=== PATIENT | female | born 1990 | race Caucasian/White ===

== ENCOUNTER 2020-07-10 07:55 | Outpatient (CLI) | payer SELFPAY ==
--- NOTE | 2020-07-10 08:45 | MR_ITS ---
WS: [id number] MRI BRAIN WITHOUT CONTRAST HISTORY: G43.909 Migraine, unspecified, not intractable, COMPARISON: None available. TECHNIQUE: Diffusion imaging, multiplanar T1, T2 and FLAIR imaging obtained. No evidence for acute infarct or hemorrhage. Dawson-white matter differentiation is normal. No remote or acute infarcts are volume loss. Ventricles and extra-axial spaces are normal. No inferior displacement of cerebellar tonsils. The sella turcica and pituitary gland are unremarkabl e. Posterior fossa is also unremarkable. Dural venous sinuses and [place] demonstrate no abnormality on this unenhanced studies. Paranasal sinuses: Variable signal intensity throughout the RIGHT maxillary sinus. Mild mucoperiostea l thickening in the LEFT maxillary, RIGHT sphenoid and ethmoid air cells. Slightly greater involvemen t of the RIGHT ethmoid air cells. Mastoid air cells: Normal. Calvarium and scalp: Intact. MR/MR head wo con* [id number] IMPRESSION: 1. No acute infarct or signal abnormalities within the brain. 2. Sinusitis, greatest involving the RIGHT maxillary and RIGHT ethmoid air carline ls with lesser involvement of the RIGHT sphenoid and LEFT maxillary sinus.
== END 2020-07-10 07:56 | disposition home or self-care (01) ==
LOC: RADSHAW 07:58
PROVIDERS: PCP Nurse Practitioner Family; Visit Provider Nurse Practitioner Family
DX: G43.909 Migraine, unspecified, not intractable, without status migrainosus (principal); J32.0 Chronic maxillary sinusitis
CPT/HCPCS: 70551; 80053; 80061; 81003; 82306; 83036; 84439; 84443; 84481; 85025

== ENCOUNTER 2020-07-12 21:41 | Emergency (ER) | payer SELFPAY ==
[2020-07-12 21:54] VITALS: BP 122/80; PULSE 63; RESP 17; TEMP 36.9; O2SAT 100; BMI 29.7
--- NOTE | 2020-07-12 22:14 | W.ED.CHESTPA ---
HPI - Chest Pain General: Chief Complaint: Chest Pain Stated Complaint: CP Time Seen by Provider: 07/12/20 22:07 History of Present Illness: HPI narrative: Patient is a 29-year-old female comes to the ED with chest pain. Patient says she has been on and off again chest pain for the past 2 weeks. She notices that sometimes chest pain gets worse after she eats and when she lays down. Otherwise onset of chest pain occurs anytime throughout the day whether she is active or sitting. Chest pain is described in the epigastric region and moves up the middle part of chest. She also says she has had some right upper arm numbness and tingling. Associated symptoms: Deny abdominal pain, dyspnea, fever(s), nausea, palpitations or vomiting Review of Systems Const: Denies: fever(s), chills or fatigue Eyes: Denies: change in vision or eye discomfort ENMT: Denies: throat pain, odynophagia, nasal discharge or nasal congestion Card: Reports: chest pain (epigastric region); Denies: palpitations, edema, swelling of feet/ankles, dyspnea on exertion or orthopnea Resp: Denies: dyspnea, productive cough or non-productive cough GI: Denies: abdominal pain, nausea, vomiting, diarrhea, constipation or hematochezia : Denies: flank pain, dysuria or hematuria Musc: Denies: neck pain, back pain or extremity swelling Skin/Breast: Denies: rash or new lesions Neuro: Denies: headache(s), numbness in extremities or weakness in extremities PFS ED PFSH: Medical History Elevated TSH Fatigue Medication management Migraines Takes metoprolol for her headaches No pertinent past medical history Denies: diabetes, asthma, hypertension, seizures, DVT/PE. PCP: BONILLA Self Vitamin D deficiency Surgical History Status post laparoscopy 2007--laparoscopic procedure performed by Dr. Lambert for a ruptured cyst which was drained. Her ovary was not removed. Status post tubal ligation 03/02/2019---laparoscopic bilateral tubal fulguration by Dr. Murray Dooley in [place]. Operative report requested and reviewed and no lesions noted on the fallopian tube or ovary at that time Family History Grandmother Diabetes paternal Breast cancer maternal, age at diagnosis unknown Heart disease paternal Hypertension paternal Stroke paternal Grandfather Heart disease paternal Unknown Cerebral aneurysm Denies family history of Colon cancer Ovarian cancer Hyperlipidemia Uterine cancer Thyroid condition Female Reproductive History: Date of last menstrual period: 06/26/20 Physical Exam Const: COMMON NORMALS: no acute distress, patient oriented x3 and alert GENERAL APPEARANCE: cooperative and comfortable HENMT: COMMON NORMALS: normocephalic HEAD & SCALP: normocephalic MOUTH: Normal oral and palatal mucosa present THROAT: posterior oropharynx normal and uvula midline Eye: COMMON NORMALS: Equal, round and reactive pupils present PUPIL: Yes Equal, round and reactive pupils present Neck/C-Spine: COMMON NORMALS: supple GENERAL: Yes normal visual inspection Resp: COMMON NORMALS: normal respiratory effort, No retractions, No use of accessory muscles and clear to auscultation bilaterally AUSCULTATION: clear to auscultation bilaterally Cardio: COMMON NORMALS: regular rate, regular rhythm, S1 normal heart sound present, S2 normal heart sound present, No gallops present (Cardio), No clicks present (Cardio), No murmurs present (Cardio) and Peripheral pulses 2+ throughout RATE: regular rate RHYTHM: regular rhythm HEART SOUNDS: S1 normal heart sound present and S2 normal heart sound present PERIPHERAL PULSES: Peripheral pulses 2+ throughout GI: COMMON NORMALS: Normal to inspection, nondistended, normoactive bowel sounds present, Soft to palpation and no masses PALPATION: Yes Soft to palpation and Yes Tenderness to palpation present (GI) (epigastric-mild tenderness) : COMMON NORMALS: Yes no CVA tenderness BLADDER/KIDNEY EXAM: Yes no CVA tenderness Back/Pelvis: COMMON NORMALS: no CVA tenderness Extremity: COMMON NORMALS: normal to inspection and no pedal edema Neuro: COMMON NORMALS: patient oriented x3 and moves all extremities SENSORIUM/ORIENTATION: Yes alert Skin: COMMON NORMALS: no rashes or lesions noted GENERAL SKIN EXAM: no rashes or lesions noted and dry skin Course Vital Signs: Vital signs: Vital Signs Temperature 98.5 F 07/12/20 21:54 Pulse Rate 93 07/12/20 23:30 Respiratory Rate 18 07/12/20 23:30 Blood Pressure 113/78 07/12/20 23:30 Pulse Oximetry 98 07/12/20 23:30 MDM - Chest Pain MDM Narrative: Medical decision making narrative: Patient is a 29-year-old female who comes to the ED with chest pain. She has been having this chest pain for the past 2 weeks and she says sometimes it correlates with food that she eats and it gets worse when she lays flat. Physical exam shows gastric tenderness upon palpation. Vitals 122/80, pulse 63, respirations 17, temp 98.5, O2 sat 100% on room air. CBC and CMP were unremarkable. hCG negative. EKG showed sinus bradycardia [address] segment elevation or depression seen and troponins were negative. Patient diagnosed with noncardiac chest pain, likely acid reflux and given a prescription for Protonix. She was told to follow-up with her PCP in 7 to 10 days for reevaluation. Return to ED precautions given. patient understood and agreed with plan. Lab Data: Attestation: I reviewed the patient's lab results. Labs: Lab Results 07/12/20 07/12/20 07/12/20 Range/Units 22:30 22:30 22:30 WBC 6.7 (4.0-10.0) 10^3/ uL RBC 4.02 L (4.1-5.3) 10^6/u L Hgb 12.2 (11.5-15.3) g/dL Hct 36.8 L (37.0-47.0) % MCV 91.5 (81-99) fL MCH 30.3 (28.0-34.0) pg MCHC 33.2 (30.0-36.0) g/dL RDW 11.9 L (12.1-15.1) % Plt Count 234 (130-400) 10^3/c mm MPV 10.1 (7.4-10.4) fL Neut % (Auto) 55.1 % Lymph % (Auto) 34.9 % [place] % (Auto) 7.6 % Eos % (Auto) 1.2 % Baso % (Auto) 0.9 % Neut # (Auto) 3.72 (1.8-7.7) 10^3/u L Lymph # (Auto) 2.4 (0.8-4.8) 10^3/u L [place] # (Auto) 0.5 (0.2-0.9) 10^3/u L Eos # (Auto) 0.1 (0.0-0.8) 10^3/u L Baso # (Auto) 0.1 (0.0-0.1) 10^3/u L Nucleated RBC % (a uto) 0 % Nucleated RBCs # 0.0 /100WBC Sodium 139 (136-145) mmol/L Potassium 3.7 (3.5-5.1) mmol/L Chloride 105 (98-107) mmol/L Carbon Dioxide 25 (22-29) mmol/L Anion Gap 12.7 (5-19) BUN 9 (6-20) mg/dL Creatinine 0.6 (0.5-0.9) mg/dL GFR Calculation 119.0 (90-130) mL/min Glucose 97 (65-115) mg/dL Calculated Osmolal ity 287 (285-295) mOsm/k g Calcium 8.6 (8.5-10.5) mg/dL Total Bilirubin 0.2 (0.15-1.2) mg/dL AST 12 (0-32) U/L ALT 12 (0-33) U/L Alkaline Phosphata se 59 (35-105) IU/L Troponin T Gen 5 n g/L 6 (0-10) ng/L Total Protein 6.4 L (6.6-8.7) g/dL Albumin 4.1 (3.5-5.2) g/dL Globulin 2.3 (1.3-4.6) g/dL HCG, Qual (Negative) 07/12/20 Range/Units 22:30 WBC (4.0-10.0) 10^3/ uL RBC (4.1-5.3) 10^6/u L Hgb (11.5-15.3) g/dL Hct (37.0-47.0) % MCV (81-99) fL MCH (28.0-34.0) pg MCHC (30.0-36.0) g/dL RDW (12.1-15.1) % Plt Count (130-400) 10^3/c mm MPV (7.4-10.4) fL Neut % (Auto) % Lymph % (Auto) % [place] % (Auto) % Eos % (Auto) % Baso % (Auto) % Neut # (Auto) (1.8-7.7) 10^3/u L Lymph # (Auto) (0.8-4.8) 10^3/u L [place] # (Auto) (0.2-0.9) 10^3/u L Eos # (Auto) (0.0-0.8) 10^3/u L Baso # (Auto) (0.0-0.1) 10^3/u L Nucleated RBC % (a uto) % Nucleated RBCs # /100WBC Sodium (136-145) mmol/L Potassium (3.5-5.1) mmol/L Chloride (98-107) mmol/L Carbon Dioxide (22-29) mmol/L Anion Gap (5-19) BUN (6-20) mg/dL Creatinine (0.5-0.9) mg/dL GFR Calculation (90-130) mL/min Glucose (65-115) mg/dL Calculated Osmolal ity (285-295) mOsm/k g Calcium (8.5-10.5) mg/dL Total Bilirubin (0.15-1.2) mg/dL AST (0-32) U/L ALT (0-33) U/L Alkaline Phosphata se (35-105) IU/L Troponin T Gen 5 n g/L (0-10) ng/L Total Protein (6.6-8.7) g/dL Albumin (3.5-5.2) g/dL Globulin (1.3-4.6) g/dL HCG, Qual Negative (Negative) EKG Data^: EKG 1: Attestation: I personally reviewed and interpreted this EKG as follows: EKG interpretation date: 07/12/20 Interpretation: Sinus bradycardia, 52 bpm, no ST segment elevation or depression seen. Discharge Plan Discharge Patient Disposition: Home Clinical Impression: Chest pain, non-cardiac Condition: Stable Prescriptions: New Protonix 40 mg tablet,delayed release (DR/EC) 40 mg PO DAILY 28 Days Qty: 30 RF: 0 No Action amitriptyline 10 mg tablet See Rx Instructions PO DAILY 30 Days Qty: 60 RF: 0 naproxen 500 mg tablet See Rx Instructions PO BID MDD 1250mg 30 Days Qty: 60 RF: 0 naproxen 250 mg tablet See Rx Instructions PO DAILY MDD 1250 30 Days Qty: 60 RF: 0 Discharge Orders: Discharge Order (Routine); Ordered 07/12/20 Ordered By: Murray Conn Referrals: EDSON Shook, RATE QUOTING OPERATOR [Primary Care Provider] - Discharge Diet: Regular Discharge Activity: Resume usual activity Patient Instructions: Gastroesophageal Reflux Disease (ED), Noncardiac Chest Pain (ED) Activity Restrictions/Additional Instructions: Follow-up with medical provider as directed in 7-10 days. Take medications as prescribed. Keep a journal of what causes or makes chest pain worse or better. Return to the ER or your medical provider if condition worsens. Please read and understand discharge instructions. If any questions, please ask. Discharge Date/Time: 07/12/20 23:30 Coding Level of Care Code ED Furniture Repairer for [place] Fwd Exam Comprehensive
--- NOTE | 2020-07-12 22:15 | ECG_ITS ---
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 Measurements Intervals [place] Rate: 52 P: 47 MO: 147 QRS: 52 QRSD: 97 T: 56 QT: 452 QTc: 423 Interpretive Statements SINUS BRADYCARDIA No previous ECG available for comparison Electronically Signed On 07-13-2020 19:42:43 CDT by Cathy Edwards M.D. [id number]
[2020-07-12 22:36] VITALS: BP 113/78; PULSE 93; RESP 18; O2SAT 98
[2020-07-12 22:39] LABS: Basophils # 0.1 10^3/uL (0.0-0.1); Basophils % 0.9 %; Eosinophils # 0.1 10^3/uL (0.0-0.8); Eosinophils % 1.2 %; Hematocrit 36.8 % (37.0-47.0); Hemoglobin 12.2 g/dL (11.5-15.3); Lymphocytes # 2.4 10^3/uL (0.8-4.8); Lymphocytes % 34.9 %; Mean Corpuscular HGB Conc 33.2 g/dL (30.0-36.0); Mean Corpuscular Hemoglobin 30.3 pg (28.0-34.0); Mean Corpuscular Volume 91.5 fL (81-99); Mean Platelet Volume 10.1 fL (7.4-10.4); Monocytes # 0.5 10^3/uL (0.2-0.9); Monocytes % 7.6 %; Neutrophils # 3.72 10^3/uL (1.8-7.7); Neutrophils % 55.1 %; Nucleated Red Blood Cells % 0 %; Platelet Count 234 10^3/cmm (130-400); Red Blood Count 4.02 10^6/uL (4.1-5.3); Red Cell Distribution Width 11.9 % (12.1-15.1); White Blood Count 6.7 10^3/uL (4.0-10.0)
[2020-07-12 22:50] LABS: HCG, Serum Qual Negative (Negative)
[2020-07-12 22:56] LABS: Alanine Aminotransferase 12 U/L (0-33); Albumin Level 4.1 g/dL (3.5-5.2); Alkaline Phosphatase 59 IU/L (35-105); Anion Gap 12.7 (5-19); Aspartate Amino Transferase 12 U/L (0-32); Blood Urea Nitrogen 9 mg/dL (6-20); Calcium 8.6 mg/dL (8.5-10.5); Carbon Dioxide 25 mmol/L (22-29); Chloride 105 mmol/L (98-107); Globulin 2.3 g/dL (1.3-4.6); Glucose 97 mg/dL (65-115); Osmolality Calculated 287 mOsm/kg (285-295); Potassium 3.7 mmol/L (3.5-5.1); Sodium 139 mmol/L (136-145); Total Bilirubin 0.2 mg/dL (0.15-1.2); Total Protein 6.4 g/dL (6.6-8.7)
[2020-07-12] MEDS: lidocaine 2% viscous 15 ML, aluminum-mag hydrox-simethicon 30 ML, sucralfate oral liq 1 GM PO (22:58)
[2020-07-12 22:59] LABS: Troponin T (5th) Once 6 ng/L (0-10)
[2020-07-12 23:30] VITALS: BP 113/78; PULSE 93; RESP 18; O2SAT 98
== END 2020-07-12 23:30 | disposition home or self-care (01) ==
PROVIDERS: Emergency Provider Physician Assistant; PCP Nurse Practitioner Family
DX: R07.89 Other chest pain (principal)
CPT/HCPCS: 12345; 80053; 84484; 84703; 85025; 93005; 99281; 99283

== ENCOUNTER → 2020-11-20 09:18 | Outpatient (BNVA) | payer MEDICAID, SELFPAY | PROVIDERS: PCP Nurse Practitioner Family; Visit Provider Nurse Practitioner Family | DX: J02.9 Acute pharyngitis, unspecified (principal); Z20.828 Contact with and (suspected) exposure to other viral communicable diseases; J02.0 Streptococcal pharyngitis | CPT/HCPCS: 87635; 87880 ==

== ENCOUNTER 2022-06-07 15:09 | Outpatient (CLI) | payer MEDICAID, SELFPAY ==
--- NOTE | 2022-06-07 15:15 | US_ITS ---
WS: [id number] ULTRASOUND SOFT TISSUES medial LEFT thigh. HISTORY: R22.42 - Localized swelling, mass and lump, left lower limb COMPARISON: None available. TECHNIQUE: 2-D and color Doppler imaging is submitted. No ultrasound abnormality is noted along the medial LEFT thigh in the area of swelling. There is no e nadiya. No distortion of the muscles or fascial planes. There are a few small lymph nodes which are nor mal. US/US soft tissue/extremity [id number] IMPRESSION: No abnormality medial LEFT thigh.
== END 2022-06-07 15:10 | disposition home or self-care (01) ==
LOC: RAD 15:11
PROVIDERS: Visit Provider Nurse Practitioner
DX: R22.42 Localized swelling, mass and lump, left lower limb (principal)
CPT/HCPCS: 76882

== ENCOUNTER → 2023-10-06 11:00 | Outpatient (BNVA) | payer MEDICAID, SELFPAY | PROVIDERS: PCP Nurse Practitioner Family; Visit Provider Nurse Practitioner Family | DX: R50.9 Fever, unspecified (principal); R11.0 Nausea | CPT/HCPCS: 87400; 87426 ==

== ENCOUNTER 2023-10-24 06:55 | Day surgery (SDC) | payer MEDICAID, SELFPAY ==
[2023-10-24] VITALS (14 sets, daily range): BP systolic 106–150; BP diastolic 60–93; PULSE 54–90; RESP 16–20; TEMP 36.1–36.9; O2SAT 96–100; BMI 31.3
--- NOTE | 2023-10-24 07:05 | W.PM.OPSUD ---
Surgery/Procedure H&P Update DATE OF PROCEDURE: October 24, 2023 DATE H&P PERFORMED: 10/11/23 H&P UPDATE INFORMATION: I have reviewed H&P completed within last 30 days, I have examined patient prior to procedure and No changes to prior documentation PLANNED PROCEDURE: Operation Date: 10/24/23 08:35 Proposed Procedures p 28938 lap bertha K80.20(Not Applicable) - Andrew Bland DO
[2023-10-24 07:18] LABS: OR HCG Qualitative Urine Negative (Negative)
[2023-10-24] MEDS: sodium chloride 0.9% 1,000 ML 30 ML IV (07:22)
--- NOTE | 2023-10-24 07:41 | ANES.PREANE2 ---
Pre-Anesthetic Assessment Height/Weight: Height 1.7 m Weight 90.718 kg Temp Pulse Resp BP Pulse Ox O2 Del Method 98.3 F 54 L 18 106/60 99 Room Air 10/24/23 07:14 10/24/23 07:14 10/24/23 07:14 10/24/23 07:14 10/24/23 07:14 10/24/23 07:14 Operation Date: 10/24/23 08:35 Proposed Procedures p 36320 lap bertha K80.20(Not Applicable) - Andrew Bland DO Familial anesthetic complications: none Was Beta Kayla taken within 24 hours: N/A Was Clonidine taken within 24 hours: N/A Last intake: Intake Last Liquid Date 10/23/23 Last Liquid Time 22:00 Last Solid Date 10/23/23 Last Solid Time 17:30 Social No alcohol and No tobacco Exam alert, oriented x 3, clear to auscultation bilaterally and regular rate & rhythm Airway Mallampati: Class II Dentition: full GI Gastroesophageal Reflux Disease Anesthetic Plan ASA status: 2 Anesthesia: General Risk of > 500 ml blood loss (7ml/kg in children): No Medications/Allergies Home Medications Medication Instructions Recorded Confirmed Last Taken Type escitalopram oxalate 10 mg tablet 10 mg PO DAILY 10/06/23 10/21/23 10/23/23 History Allergies Allergy/AdvReac Type Severity Reaction Status Date / Time tramadol Allergy hives Verified 10/11/23 09:14 Current Medications Generic Name Dose Route Start Last Admin Trade Name Freq PRN Reason Stop Dose Admin Sodium Chloride 1,000 mls @ 30 mls/hr 10/24/23 07:15 10/24/23 07:22 Sodium Chloride 0.9% IV 10/25/23 07:14 30 mls/hr .Q24H TERESA Administration PFSH Anesthesia Medical History Gastroenteritis Nausea GERD (gastroesophageal reflux disease) Chronic sinusitis Elevated TSH Medication management Fatigue Vitamin D deficiency Migraines Takes metoprolol for her headaches No pertinent past medical history Denies: diabetes, asthma, hypertension, seizures, DVT/PE. PCP: BONILLA Self Surgical History Status post laparoscopy 2007--laparoscopic procedure performed by Dr. Lambert for a ruptured cyst which was drained. Her ovary was not removed. Status post tubal ligation 03/02/2019---laparoscopic bilateral tubal fulguration by Dr. Murray Dooley in [place]. Operative report requested and reviewed and no lesions noted on the fallopian tube or ovary at that time Family History Grandmother Diabetes paternal Breast cancer maternal, age at diagnosis unknown Heart disease paternal Hypertension paternal Stroke paternal Grandfather Heart disease paternal Unknown Cerebral aneurysm Denies family history of Colon cancer Ovarian cancer Hyperlipidemia Uterine cancer Thyroid disease Social History Smoking and tobacco/nicotine status: never used tobacco/nicotine Female Reproductive History Date of last menstrual period: 09/30/23 Data Anesthesia Cardiac Studies: No Data to Display
[2023-10-24] MEDS: ceFAZolin 2,000 MG in sodium chloride 0.9% (plus) 50 ML 100 MG IV (08:40)
[2023-10-24] MEDS: lidocaine-epi 2% 20 mL INJ 10 ML INJECTION (09:10)
--- NOTE | 2023-10-24 10:24 | P.OP_ITS ---
Operative Report Date of procedure: October 24, 2023 Pre-op diagnosis: Symptomatic cholelithiasis Post-op diagnosis: Acute on chronic calculous cholecystitis Procedure done: Laparoscopic cholecystectomy Implants: none Specimens removed/disposition: Gallbladder Surgeon: Andrew Bland DO Anesthesia: General Estimated blood loss (mL): 20 Complications: None apparent Brief History: This very pleasant 33-year-old female who presented to my office with abdominal pain and was diagnosed with symptomatic cholelithiasis. Laparoscopic cholecystectomy is indicated. The risk and benefits were explained and documented. Procedure: Patient was wheeled into the operative room and placed on the OR table in a supine position. Abdomen was inspected prepped and draped in usual sterile fashion. Time-out was performed and all present were in agreement. A 15 blade scalp was used to make a stab incision in the left upper quadrant and intra- abdominal insufflation was achieved using a Veress needle. After localizing the tissue incisions were made and a 5 millimeter trocar was placed into the umbilicus as well as 2 in the right upper quadrant. A 12 millimeter trocar was placed in the epigastrium. Gallbladder was grasped and elevated. The gallbladder was very difficult to grasp as it was covered with dense adhesions from the omentum and there were very large stones in the gallbladder. The triangle of Calot was carefully dissected using blunt dissection and electrocautery until the triangle of Calot clearly identified. The cystic duct was clipped proximally and double clipped distally. The duct was then ligated proximally. The cystic artery was doubly clipped and ligated. The gallbladder was then removed from the liver bed using electrocautery. The gallbladder was removed from the abdomen using an Endo-Catch bag through the epigastric incision. The liver bed was inspected and no bleeding was seen. The abdomen was irrigated and suctioned. All ports removed. Skin was washed and dried. Incisions were closed with 4-0 Monocryl in a subcuticular interrupted fashion. Skin glue was applied. Patient tolerated the procedure well.
[2023-10-24] MEDS: ondansetron 2 mg/ML SDV 2 mL 4 MG IVP ×2 (11:03→11:34)
[2023-10-24] MEDS: HYDROcodone-acetaminophen 7.5-325 mg Tablet 1 TAB PO (12:07)
--- NOTE | 2023-10-24 12:50 | ANE.PACU2 ---
Inpatient post-anesthesia follow up: Airway intact: Yes Vital signs: Temperature 97.0 F Pulse Rate 63 Respiratory Rate 18 Blood Pressure 110/71 Pulse Oximetry 97 Oxygen Delivery Me thod Room Air Oxygen Flow Rate 6 Fraction of Inspir ed Oxygen Hydration adequate: Yes Nausea and vomiting: No Pain level: 1 Mental status: Baseline
== END 2023-10-24 12:50 | disposition home or self-care (01) ==
PROVIDERS: Anesthesiology; PCP Nurse Practitioner Family; Visit Provider Surgery
PROC: 0FT44ZZ Resection of Gallbladder, Percutaneous Endoscopic Approach (ICD-10-PCS; CPT 47562; principal; 2023-10-24 08:25)
DX: K80.10 Calculus of gallbladder with chronic cholecystitis without obstruction (principal); K21.9 Gastro-esophageal reflux disease without esophagitis
CPT/HCPCS: 47562; 81025; 84703; 88304; J0690; J1100; J1200; J2250; J2405; J2704; J2710; J3010; J3490; J7030

== ENCOUNTER 2023-10-26 16:21 | Emergency (ER) | payer MEDICAID, SELFPAY ==
[2023-10-26 16:22] VITALS: BP 101/67; PULSE 60; RESP 16; TEMP 36.6; O2SAT 99
--- NOTE | 2023-10-26 16:23 | XRR_ITS ---
PROCEDURE INFORMATION: Exam: XR Chest Exam date and time: 10/26/2023 4:37 PM Age: 33 years old Clinical indication: Cough TECHNIQUE: Imaging protocol: Radiologic exam of the chest. Views: 1 view. COMPARISON: No relevant prior studies available. FINDINGS: Lungs: No focal consolidation. Pleural spaces: No evidence of pneumothorax. No evidence of pleural effusion. Heart/Mediastinum: Cardiomediastinal silhouette is within normal limits. Bones/joints: No evidence of acute osseous abnormality. XR/XR chest 1V portable [id number] IMPRESSION: 1. No acute cardiopulmonary abnormality.
--- NOTE | 2023-10-26 16:30 | ED_ITS ---
HPI - General Adult General: Chief complaint: Upper Respiratory Infection Stated complaint: chest pain, coughing blood Time Seen by Provider: 10/26/23 16:30 History of Present Illness: 33-year-old female comes in today for co mplaints of chest pain and cough. Patient had surgery on Tuesday reports occasional cough with some blood-tinged sputum. Patient appears nontoxic. Abdomen soft nontender. Bowel sounds are present. Patient reports passing gas. Patient did have gallbladder removal on Tuesday. Patient is on Augmentin for concerns of cholecystitis at the time of surgery. Review of Systems General: Reports: 10 or more systems reviewed and unremarkable except in HPI and below Resp: Reports: productive cough and change in phlegm color PFSH ED PFSH: Medical History Gastroenteritis Nausea GERD (gastroesophageal reflux disease) Chronic sinusitis Elevated TSH Medication management Fatigue Vitamin D deficiency Migraines Takes metoprolol for her headaches No pertinent past medical history Denies: diabetes, asthma, hypertension, seizures, DVT/PE. PCP: BONILLA Self Surgical History Status post laparoscopy 2007--laparoscopic procedure performed by Dr. Lambert for a ruptured cyst which was drained. Her ovary was not removed. Status post tubal ligation 03/02/2019---laparoscopic bilateral tubal fulguration by Dr. Murray Dooley in [place]. Operative report requested and reviewed and no lesions noted on the fallopian tube or ovary at that time Family History Grandmother Diabetes paternal Breast cancer maternal, age at diagnosis unknown Heart disease paternal Hypertension paternal Stroke paternal Grandfather Heart disease paternal Unknown Cerebral aneurysm Denies family history of Colon cancer Ovarian cancer Hyperlipidemia Uterine cancer Thyroid disease Social History Smoking and tobacco/nicotine status: never used tobacco/nicotine Physical Exam Const: COMMON NORMALS: alert HENMT: COMMON NORMALS: normocephalic HEAD & SCALP: normocephalic Neck/C-Spine: COMMON NORMALS: full ROM Resp: COMMON NORMALS: normal respiratory effort and clear to auscultation bilaterally AUSCULTATION: clear to auscultation bilaterally Cardio: COMMON NORMALS: regular rate and regular rhythm RATE: regular rate RHYTHM: regular rhythm GI: COMMON NORMALS: Soft to palpation PALPATION: Yes Soft to palpation and Yes Tenderness to palpation present (GI) (Postsurgical tenderness) Back/Pelvis: COMMON NORMALS: thoracic and lumbar spine normal to inspection Extremity: COMMON NORMALS: normal to inspection Neuro: SENSORIUM/ORIENTATION: Yes alert Skin: COMMON NORMALS: turgor normal GENERAL SKIN EXAM: turgor normal Course Vital Signs: Vital signs: Vital Signs Temperature 97.8 F 10/26/23 16:22 Pulse Rate 60 10/26/23 16:22 Respiratory Rate 16 10/26/23 16:22 Blood Pressure 101/67 10/26/23 16:22 Pulse Oximetry 99 10/26/23 16:22 Oxygen Delivery Me thod Room Air 10/26/23 16:22 [facility] - General Adult Medical Decision Making 33-year-old female comes in today with occasional cough. Patient did have some sputum production with her cough that had some blood-tinged to it. This prompted patient to come into the ER. On exam lungs are clear to auscultation. Heart rates regular in the 60s. Blood pressure is normal. No edema is noted in the extremities. No calf pain is noted on palpation. Differential diagnosis includes but not limited to pneumonia, postsurgical bronchitis, PE. No signs of severe illness is noted. Chest x-ray was normal. Believe patient probably has a little postoperative bronchitis. Recommended fluids and good deep breaths and clearing of lung clarke. Recommend monitoring for worsening symptoms such as severe shortness of breath, uncontrolled pain, or new concerns. Patient reported understanding agreed to plan. Lab Data Radiology Impressions Chest X-Ray 10/26/23 16:23 IMPRESSION: 1. No acute cardiopulmonary abnormality. All radiology interpretation(s) finalized by discharge Discharge Plan Discharge Patient Disposition: Home Clinical Impression: Postoperative bronchitis Condition: Stable Prescriptions: No Action escitalopram oxalate 10 mg tablet 10 mg PO DAILY hydrocodone-acetaminophen 7.5-325 mg tablet 1 tab PO Q6H PRN (Reason: pain) Qty: 20 0RF DOK 100 mg capsule 100 mg PO BID Qty: 14 0RF amoxicillin-pot clavulanate 875-125 mg tablet 1 tab PO BID Qty: 14 0RF Discharge Orders: Discharge ED (Routine); Ordered 10/26/23 Ordered By: Marvel Santos Referrals: EDSON Shook, SPECIAL WEAPONS AND TACTICS OFFICER [Primary Care Provider] - Discharge Diet: Usual diet Discharge Activity: Increase activity as tolerated Patient Instructions: Bronchitis (Acute) - Adult Activity Restrictions/Additional Instructions: Drink plenty water and fluids. Use acetaminophen and/or ibuprofen for discomfort. Activity as tolerated. Continue with antibiotic as prescribed. Follow-up with primary care as needed. Return to ED for worsening symptoms such as fever greater than 100.4, increasing shortness of breath, or new concerns. Coding Level of Care Code ED Communication Lecturer for Greg Machado
== END 2023-10-26 17:34 | disposition home or self-care (01) ==
PROVIDERS: Emergency Provider Nurse Practitioner Family; PCP Nurse Practitioner Family
DX: J40 Bronchitis, not specified as acute or chronic (principal)
CPT/HCPCS: 71045; 99283

== ENCOUNTER 2023-12-05 14:17 | Emergency (ER) | payer MEDICAID, SELFPAY ==
[2023-12-05 15:14] VITALS: BP 118/69; PULSE 74; RESP 18; TEMP 36.8; O2SAT 98; BMI 31.0
--- NOTE | 2023-12-05 17:15 | ECG_ITS ---
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 Measurements Intervals [place] Rate: 65 P: 36 ME: 136 QRS: 23 QRSD: 99 T: 40 QT: 402 QTc: 420 Interpretive Statements SINUS RHYTHM Compared to ECG 07/12/2020 22:30:04 Sinus bradycardia no longer present Electronically Signed On 12-06-2023 23:09:05 CDT by Cathy Edwards M.D. [id number]
--- NOTE | 2023-12-05 17:55 | W.ED.HA ---
Documented by User: TYLER Bills 12/05/23 21:40 HPI - Headache General: Chief Complaint: Headache Stated Complaint: fall, neck pain Time Seen by Provider: 12/05/23 16:11 Source: patient Mode of arrival: ambulatory Limitations: no limitations History of Present Illness: Patient is a 31-year-old female presents the emergency department complaining of dizziness and associated fall onset this morning at 0400. Patient reports to me that she was walking to the kitchen when she suddenly got dizzy and blacked out , waking up sometime later on the floor. She is unsure of how long she had lost consciousness. She has never had this happen before. This was unwitnessed, but patient states she was able to get up under her own power and transfer to her bed afterwards. She was seen at [facility] where she had a head CT, stating there were no acute findings along with a negative flu and COVID. She reports here for a second opinion and states that she is still having pain to the back of her head. She denies any other symptoms including no nausea, chest pain, breathing difficulties, palpitations, visual changes, acute neurovascular deficits, or any other symptoms. There is reportedly no change in her clinical/mental status, according to friends/family in the room. MD elicited complaint: headache Onset (ago): hour(s) Onset description: suddenly Exacerbating factors: none Relieving factors: nothing Associated symptoms: Reports no associated symptoms; Deny chest pain, fever(s), lightheadedness, nausea, rash or vomiting Review of Systems General: Reports: 10 or more systems reviewed and unremarkable except in HPI and below and Other (fall) Const: Denies: fever(s), chills or fatigue Eyes: Denies: change in vision ENMT: Denies: throat pain, ear or mastoid pain or nasal discharge Card: Denies: chest pain, palpitations, swelling of feet/ankles or lightheadedness Resp: Denies: dyspnea, productive cough or wheezing GI: Denies: abdominal pain, nausea, vomiting, diarrhea or constipation : Denies: flank pain, difficulty voiding, dysuria or urinary frequency Musc: Denies: neck pain, back pain or joint pain Skin/Breast: Denies: rash Neuro: Reports: headache(s) and dizziness; Denies: numbness in extremities or weakness in extremities PFSH ED PFS: Medical History Gastroenteritis Nausea GERD (gastroesophageal reflux disease) Chronic sinusitis Elevated TSH Medication management Fatigue Vitamin D deficiency Migraines Takes metoprolol for her headaches No pertinent past medical history Denies: diabetes, asthma, hypertension, seizures, DVT/PE. PCP: BONILLA Self Surgical History Hx laparoscopic cholecystectomy 10/26 dr. pascal Status post laparoscopy 2007--laparoscopic procedure performed by Dr. Lambert for a ruptured cyst which was drained. Her ovary was not removed. Status post tubal ligation 03/02/2019---laparoscopic bilateral tubal fulguration by Dr. Murray Dooley in [place]. Operative report requested and reviewed and no lesions noted on the fallopian tube or ovary at that time Family History Grandmother Diabetes paternal Breast cancer maternal, age at diagnosis unknown Heart disease paternal Hypertension paternal Stroke paternal Grandfather Heart disease paternal Unknown Cerebral aneurysm Denies family history of Colon cancer Ovarian cancer Hyperlipidemia Uterine cancer Thyroid disease Social History Smoking and tobacco/nicotine status: never used tobacco/nicotine Physical Exam Const: COMMON NORMALS: no acute distress, patient oriented x3, no limitations and alert GENERAL APPEARANCE: cooperative, comfortable and well developed ORIENTATION/CONSCIOUSNESS: Yes awake, Yes oriented to person, Yes oriented to place and Yes oriented to time HENMT: COMMON NORMALS: normocephalic, atraumatic, hearing grossly normal bilaterally, external ears normal, EAC's normal and Normal external nose present HEAD & SCALP: normal to inspection, normocephalic and atraumatic; no Dan's sign, no contusion, no hematoma, no laceration, no palpable skull fracture, no raccoon eyes and no scalp tenderness FACE & SINUS: normal facial exam and face symmetric NOSE: Normal external nose present, Normal nares present and No nasal polyps present EXTERNAL EAR: Yes external ears normal EXTERNAL AUDITORY CANAL: EAC's normal MOUTH: Normal oral and palatal mucosa present THROAT: posterior oropharynx normal Eye: COMMON NORMALS: Equal, round and reactive pupils present, EOMs intact bilaterally and conjunctivae normal CONJUNCTIVA: Yes conjunctivae normal PUPIL: Yes Equal, round and reactive pupils present Neck/C-Spine: COMMON NORMALS: full ROM, supple, no meningeal signs and no JVD GENERAL: Yes normal visual inspection CERVICAL SPINE: Yes cervical ROM normal Resp: COMMON NORMALS: normal respiratory effort, No retractions, No use of accessory muscles and clear to auscultation bilaterally AUSCULTATION: clear to auscultation bilaterally Cardio: COMMON NORMALS: no JVD, regular rate, regular rhythm, No clicks present (Cardio), No murmurs present (Cardio) and No rub (Cardio) RATE: regular rate RHYTHM: regular rhythm Extremity: COMMON NORMALS: normal to inspection, full ROM and capillary refill normal Neuro: COMMON NORMALS: patient oriented x3, CN's II-XII intact bilaterally, moves all extremities, no focal motor deficits, no sensory deficits noted and gait normal SENSORIUM/ORIENTATION: Yes alert, Yes oriented to person, Yes oriented to place and Yes oriented to time MENINGEAL SIGNS: Yes no meningeal signs MOTOR EXAM: 5/5 motor strength present throughout Psych: COMMON NORMALS: mental status grossly normal, Normal thought process present, cooperative and normal affect THOUGHT PROCESS: Normal thought process present Skin: COMMON NORMALS: no rashes or lesions noted GENERAL SKIN EXAM: no rashes or lesions noted Course Vital Signs: Vital signs: Vital Signs Temperature 98.3 F 12/05/23 15:14 Pulse Rate 74 12/05/23 15:14 Respiratory Rate 18 12/05/23 15:14 Blood Pressure 118/69 12/05/23 15:14 Pulse Oximetry 98 12/05/23 15:14 Oxygen Delivery Me thod Room Air 12/05/23 15:14 MDM - Headache Medical Decision Making Patient seen and evaluated in the emergency department today due to a fall preceded by dizziness earlier this morning. Patient states that she blacked out and has never had this happen before she was able to get up under her own power. She was seen prior at [facility] where she had a negative workup including negative head CT without contrast. She presents stating that she wants a second opinion. Vitals on arrival normal. Examination unremarkable with a fully intact neurological exam. Friend/family in the room confirmed that patient's mentation has not changed between prior ED visit and now. Patient had stated she is still concerned of her headache. I ordered blood work including CBC CMP, both which unremarkable. Urinalysis negative for any signs of acute infection and UDS negative. Orthostatic vital signs negative. I also reviewed her EKG which showed no abnormalities. Because of patient's negative workup at 2 separate emergency departments today, I believe that the patient's fall is potentially due to a vasovagal syncope picture. However I encouraged her to follow-up with her primary care doctor later this week for further evaluation. I instructed family of patient to monitor her for any acute changes in mental status, decreased respiratory drive, or other concerning symptoms she may have. Patient and family agrees with this plan. Discharged home. Lab Data 12/05/23 18:31 12/05/23 18:31 Laboratory Results WBC 4.43 10^3/uL (3.29-11.43) 12/05/23 18: RBC 3.93 10^6/uL (3.85-5.65) 12/05/23 18: Hgb 12.20 g/dL (11.27-16.99) 12/05/23 18: Hct 37.0 % (36-47) 12/05/23 18: MCV 94.1 fl (85-98) 12/05/23 18: MCH 31.0 pg (27-33) 12/05/23 18: MCHC 33.0 g/dL (30-55) 12/05/23 18: RDW 12.4 % (12.1-15.1) 12/05/23 18: Plt Count 227 10^3/cmm (157-399) 12/05/23 18: MPV 9.7 fL (7.4-10.4) 12/05/23 18: Neut % (Auto) 71.2 % 12/05/23 18: Lymph % (Auto) 16.0 % 12/05/23 18: Mcpherson % (Auto) 10.6 % 12/05/23 18: Eos % (Auto) 0.9 % 12/05/23 18: Baso % (Auto) 1.1 % 12/05/23 18: Neut # (Auto) 3.15 10^3/uL (1.8-7.7) 12/05/23 18:31 Lymph # (Auto) 0.7 10^3/uL (0.8-4.8) L 12/05/23 18:31 Mcpherson # (Auto) 0.5 10^3/uL (0.2-0.9) 12/05/23 18:31 Eos # (Auto) 0.0 10^3/uL (0.0-0.8) 12/05/23 18:31 Baso # (Auto) 0.1 10^3/uL (0.0-0.1) 12/05/23 18:31 Nucleated RBC % (auto) 0 % 12/05/23 18: Nucleated RBCs # 0.0 /100WBC 12/05/23 18:31 Sodium 139 mmol/L (136-145) 12/05/23 18:31 Potassium 3.8 mmol/L (3.5-5.1) 12/05/23 18:31 Chloride 104 mmol/L (98-107) 12/05/23 18:31 Carbon Dioxide 26 mmol/L (22-29) 12/05/23 18:31 Anion Gap 12.8 (5-19) 12/05/23 18:31 BUN 9 mg/dL (6-20) 12/05/23 18:31 Creatinine 0.9 mg/dL (0.5-0.9) 12/05/23 18:31 GFR Calculation 72.6 mL/min (90-130) L 12/05/23 18:31 Glucose 87 mg/dL (65-115) 12/05/23 18:31 Calculated Osmolality 286 mOsm/kg (285-295) 12/05/23 18:31 Calcium 8.5 mg/dL (8.5-10.5) 12/05/23 18:31 Total Bilirubin 0.5 mg/dL (0.15-1.2) 12/05/23 18:31 AST 17 U/L (0-32) 12/05/23 18:31 ALT 16 U/L (0-33) 12/05/23 18:31 Alkaline Phosphatase 77 U/L (35-105) 12/05/23 18:31 Total Protein 7.3 g/dL (6.6-8.7) 12/05/23 18:31 Albumin 4.0 g/dL (3.5-5.2) 12/05/23 18:31 Globulin 3.3 g/dL (1.3-4.6) 12/05/23 18:31 HCG, Qual Negative (Negative) 12/05/23 18:31 Urine Color Yellow (Yellow) 12/05/23 17:42 Urine Appearance Sl hazy (CLEAR) A 12/05/23 17:42 Urine pH 5 (5-7) 12/05/23 17:42 Ur Specific Keymar 1.010 (1.005-1.030) 12/05/23 17:42 Urine Protein Neg (Negative) 12/05/23 17:42 Urine Glucose (UA) Norm (Normal) 12/05/23 17:42 Urine Ketones Negative (Negative) 12/05/23 17:42 Urine Blood Trace (Negative) H 12/05/23 17:42 Urine Nitrate Negative (Negative) 12/05/23 17:42 Urine Bilirubin Neg (Negative) 12/05/23 17:42 Urine Urobilinogen Norm mg/dL (Negative) 12/05/23 17:42 Ur Leukocyte Esterase Negative (Negative) 12/05/23 17:42 Urine RBC 0-4 /hpf (0-2) H 12/05/23 17:42 Urine WBC 0-4 /hpf (0-5) H 12/05/23 17:42 Ur Squamous Epith Cells 10-15 /hpf (0-5) H 12/05/23 17:42 Amorphous Sediment Not Reportable 12/05/23 17:42 Urine Bacteria Trace /hpf (NONE) 12/05/23 17:42 Urine Mucus Trace /hpf 12/05/23 17:42 Urine Opiates Screen Negative ng/mL (Negative) 12/05/23 17:42 Ur Barbiturates Screen Negative ng/mL (Negative) 12/05/23 17:42 Ur Phencyclidine Scrn Negative ng/mL (Negative) 12/05/23 17:42 Ur Amphetamines Screen Negative ng/mL (Negative) 12/05/23 17:42 U Benzodiazepines Scrn Negative ng/mL (Negative) 12/05/23 17:42 Urine Cocaine Screen Negative ng/mL (Negative) 12/05/23 17:42 U Marijuana (THC) Screen Negative ng/mL (Negative) 12/05/23 17:42 No radiology studies performed this visit ED provider radiology interpretation(s): CT results reviewed from [facility] from earlier today. Patient had CT head without contrast that showed no acute intracranial findings. EKG Data EKG 1: I personally reviewed and interpreted this EKG as follows: EKG interpretation date: 12/05/23 EKG interpretation time: 17:55 Prior EKG tracings: not available for review Interpretation: EKG reviewed by me. Normal sinus rhythm. Normal axis. Normal intervals. Rate 65. No prior tracings for comparison. Discharge Plan Discharge Patient Disposition: Home Clinical Impression: Vasovagal syncope Condition: Stable Prescriptions: No Action escitalopram oxalate 10 mg tablet 10 mg PO DAILY pantoprazole [Protonix] 40 mg tablet,delayed release (DR/EC) 40 mg PO BID 42 Days Qty: 84 1RF hydrocodone-acetaminophen 7.5-325 mg tablet 1 tab PO Q6H PRN (Reason: pain) Qty: 20 0RF DOK 100 mg capsule 100 mg PO BID Qty: 14 0RF amoxicillin-pot clavulanate 875-125 mg tablet 1 tab PO BID Qty: 14 0RF Discharge Orders: Discharge ED (Routine); Ordered 12/05/23 Ordered By: Binh Reese Referrals: EDSON Shook, HUMID SYSTEM OPERATOR [Primary Care Provider] - Discharge Diet: Usual diet Discharge Activity: Increase activity as tolerated Patient Instructions: Syncope (ED), Post Concussion Syndrome (ED) Activity Restrictions/Additional Instructions: Please follow-up with your primary care provider later this week for any further evaluation. Monitor patient closely for any signs of mental status change or other concerning symptoms. Coding Level of Care Code ED Snap Attacher for Chg Fwd Documented by User: Omar Miner DO 12/06/23 06:07 HPI - Headache General: Chief Complaint: Headache Stated Complaint: fall, neck pain Time Seen by Provider: 12/05/23 16:11 PFS ED PFSH: Medical History Gastroenteritis Nausea GERD (gastroesophageal reflux disease) Chronic sinusitis Elevated TSH Medication management Fatigue Vitamin D deficiency Migraines Takes metoprolol for her headaches No pertinent past medical history Denies: diabetes, asthma, hypertension, seizures, DVT/PE. PCP: BONILLA Self Surgical History Hx laparoscopic cholecystectomy 10/26 dr. pascal Status post laparoscopy 2007--laparoscopic procedure performed by Dr. Lambert for a ruptured cyst which was drained. Her ovary was not removed. Status post tubal ligation 03/02/2019---laparoscopic bilateral tubal fulguration by Dr. Murray Dooley in [place]. Operative report requested and reviewed and no lesions noted on the fallopian tube or ovary at that time Family History Grandmother Diabetes paternal Breast cancer maternal, age at diagnosis unknown Heart disease paternal Hypertension paternal Stroke paternal Grandfather Heart disease paternal Unknown Cerebral aneurysm Denies family history of Colon cancer Ovarian cancer Hyperlipidemia Uterine cancer Thyroid disease Social History Smoking and tobacco/nicotine status: never used tobacco/nicotine Course Vital Signs: Vital signs: Vital Signs Temperature 98.3 F 12/05/23 15:14 Pulse Rate 74 12/05/23 15:14 Respiratory Rate 18 12/05/23 15:14 Blood Pressure 118/69 12/05/23 15:14 Pulse Oximetry 98 12/05/23 15:14 Oxygen Delivery Me thod Room Air 12/05/23 15:14 MDM - Headache Medical Decision Making Patient seen and evaluated in the emergency department today due to a fall preceded by dizziness earlier this morning. Patient states that she blacked out and has never had this happen before she was able to get up under her own power. She was seen prior at [facility] where she had a negative workup including negative head CT without contrast. She presents stating that she wants a second opinion. Vitals on arrival normal. Examination unremarkable with a fully intact neurological exam. Friend/family in the room confirmed that patient's mentation has not changed between prior ED visit and now. Patient had stated she is still concerned of her headache. I ordered blood work including CBC CMP, both which unremarkable. Urinalysis negative for any signs of acute infection and UDS negative. Orthostatic vital signs negative. I also reviewed her EKG which showed no abnormalities. Because of patient's negative workup at 2 separate emergency departments today, I believe that the patient's fall is potentially due to a vasovagal syncope picture. However I encouraged her to follow-up with her primary care doctor later this week for further evaluation. I instructed family of patient to monitor her for any acute changes in mental status, decreased respiratory drive, or other concerning symptoms she may have. Patient and family agrees with this plan. Discharged home. Chart reviewed and patient discussed with midlevel. Agree with assessment and plan. Lab Data 12/05/23 18:31 12/05/23 18: Laboratory Results WBC 4.43 10^3/uL (3.29-11.43) 12/05/23 18: RBC 3.93 10^6/uL (3.85-5.65) 12/05/23 18: Hgb 12.20 g/dL (11.27-16.99) 12/05/23 18: Hct 37.0 % (36-47) 12/05/23 18: MCV 94.1 fl (85-98) 12/05/23 18: MCH 31.0 pg (27-33) 12/05/23 18: MCHC 33.0 g/dL (30-55) 12/05/23 18: RDW 12.4 % (12.1-15.1) 12/05/23 18: Plt Count 227 10^3/cmm (157-399) 12/05/23 18: MPV 9.7 fL (7.4-10.4) 12/05/23 18: Neut % (Auto) 71.2 % 12/05/23 18: Lymph % (Auto) 16.0 % 12/05/23 18: Mcpherson % (Auto) 10.6 % 12/05/23 18: Eos % (Auto) 0.9 % 12/05/23 18: Baso % (Auto) 1.1 % 12/05/23 18: Neut # (Auto) 3.15 10^3/uL (1.8-7.7) 12/05/23 18: Lymph # (Auto) 0.7 10^3/uL (0.8-4.8) L 12/05/23 18:31 Mcpherson # (Auto) 0.5 10^3/uL (0.2-0.9) 12/05/23 18: Eos # (Auto) 0.0 10^3/uL (0.0-0.8) 12/05/23 18:31 Baso # (Auto) 0.1 10^3/uL (0.0-0.1) 12/05/23 18: Nucleated RBC % (auto) 0 % 12/05/23 18: Nucleated RBCs # 0.0 /100WBC 12/05/23 18:31 Sodium 139 mmol/L (136-145) 12/05/23 18: Potassium 3.8 mmol/L (3.5-5.1) 12/05/23 18: Chloride 104 mmol/L (98-107) 12/05/23 18: Carbon Dioxide 26 mmol/L (22-29) 12/05/23 18: Anion Gap 12.8 (5-19) 12/05/23 18:31 BUN 9 mg/dL (6-20) 12/05/23 18:31 Creatinine 0.9 mg/dL (0.5-0.9) 12/05/23 18: GFR Calculation 72.6 mL/min (90-130) L 12/05/23 18:31 Glucose 87 mg/dL (65-115) 12/05/23 18: Calculated Osmolality 286 mOsm/kg (285-295) 12/05/23 18: Calcium 8.5 mg/dL (8.5-10.5) 12/05/23 18:31 Total Bilirubin 0.5 mg/dL (0.15-1.2) 12/05/23 18:31 AST 17 U/L (0-32) 12/05/23 18:31 ALT 16 U/L (0-33) 12/05/23 18:31 Alkaline Phosphatase 77 U/L (35-105) 12/05/23 18:31 Total Protein 7.3 g/dL (6.6-8.7) 12/05/23 18: Albumin 4.0 g/dL (3.5-5.2) 12/05/23 18: Globulin 3.3 g/dL (1.3-4.6) 12/05/23 18:31 HCG, Qual Negative (Negative) 12/05/23 18:31 Urine Color Yellow (Yellow) 12/05/23 17:42 Urine Appearance Sl hazy (CLEAR) A 12/05/23 17:42 Urine pH 5 (5-7) 12/05/23 17:42 Ur Specific Keymar 1.010 (1.005-1.030) 12/05/23 17:42 Urine Protein Neg (Negative) 12/05/23 17:42 Urine Glucose (UA) Norm (Normal) 12/05/23 17:42 Urine Ketones Negative (Negative) 12/05/23 17:42 Urine Blood Trace (Negative) H 12/05/23 17:42 Urine Nitrate Negative (Negative) 12/05/23 17:42 Urine Bilirubin Neg (Negative) 12/05/23 17:42 Urine Urobilinogen Norm mg/dL (Negative) 12/05/23 17:42 Ur Leukocyte Esterase Negative (Negative) 12/05/23 17:42 Urine RBC 0-4 /hpf (0-2) H 12/05/23 17:42 Urine WBC 0-4 /hpf (0-5) H 12/05/23 17:42 Ur Squamous Epith Cells 10-15 /hpf (0-5) H 12/05/23 17:42 Amorphous Sediment Not Reportable 12/05/23 17:42 Urine Bacteria Trace /hpf (NONE) 12/05/23 17:42 Urine Mucus Trace /hpf 12/05/23 17:42 Urine Opiates Screen Negative ng/mL (Negative) 12/05/23 17:42 Ur Barbiturates Screen Negative ng/mL (Negative) 12/05/23 17:42 Ur Phencyclidine Scrn Negative ng/mL (Negative) 12/05/23 17:42 Ur Amphetamines Screen Negative ng/mL (Negative) 12/05/23 17:42 U Benzodiazepines Scrn Negative ng/mL (Negative) 12/05/23 17:42 Urine Cocaine Screen Negative ng/mL (Negative) 12/05/23 17:42 U Marijuana (THC) Screen Negative ng/mL (Negative) 12/05/23 17:42 Discharge Plan Discharge Patient Disposition: Home Clinical Impression: Vasovagal syncope Condition: Stable Prescriptions: No Action escitalopram oxalate 10 mg tablet 10 mg PO DAILY pantoprazole [Protonix] 40 mg tablet,delayed release (DR/EC) 40 mg PO BID 42 Days Qty: 84 1RF hydrocodone-acetaminophen 7.5-325 mg tablet 1 tab PO Q6H PRN (Reason: pain) Qty: 20 0RF DOK 100 mg capsule 100 mg PO BID Qty: 14 0RF amoxicillin-pot clavulanate 875-125 mg tablet 1 tab PO BID Qty: 14 0RF Discharge Orders: Discharge ED (Routine); Ordered 12/05/23 Ordered By: Binh Reese Referrals: EDSON Shook, HUMID SYSTEM OPERATOR [Primary Care Provider] - Discharge Diet: Usual diet Discharge Activity: Increase activity as tolerated Patient Instructions: Syncope (ED), Post Concussion Syndrome (ED) Activity Restrictions/Additional Instructions: Please follow-up with your primary care provider later this week for any further evaluation. Monitor patient closely for any signs of mental status change or other concerning symptoms. Coding Level of Care Code ED Snap Attacher for Greg Machado
[2023-12-05 18:01] LABS: Amphetamines Screen Urine Negative (Negative); Barbiturates Screen Urine Negative (Negative); Benzodiazepines Screen Urine Negative (Negative); Cocaine Screen Urine Negative (Negative); Opiate Screen Urine Negative (Negative); PCP Screen Urine Negative (Negative); THC Screen Urine Negative (Negative)
[2023-12-05 18:20] LABS: Add Urine Microscopic? YES; Bilirubin Urine Neg (Negative); Blood Urine Trace (Negative); Glucose Urine UA Norm (Normal); Ketones Urine Negative (Negative); Leukocyte Esterase Urine Negative (Negative); Nitrate Urine Negative (Negative); Protein Urine Neg (Negative); RBC Urine 0-4 /hpf (0-2); Urine Appearance SL Hazy (CLEAR); Urine Color Yellow (Yellow); Urobilinogen Urine Norm (Negative); WBC Urine 0-4 /hpf (0-5); pH Urine 5 (5-7)
[2023-12-05 18:21] LABS: Add Urine Culture? No; Bacteria Urine TRACE /hpf; Mucus Urine TRACE /hpf
[2023-12-05 18:40] LABS: Basophils # 0.1 10^3/uL (0.0-0.1); Basophils % 1.1 %; Eosinophils % 0.9 %; Lymphocytes # 0.7 10^3/uL (0.8-4.8); Mean Corpuscular Volume 94.1 fl (85-98); Mean Platelet Volume 9.7 fL (7.4-10.4); Monocytes # 0.5 10^3/uL (0.2-0.9); Monocytes % 10.6 %; Neutrophils # 3.15 10^3/uL (1.8-7.7); Neutrophils % 71.2 %; Nucleated Red Blood Cells % 0 %; Platelet Count 227 10^3/cmm (157-399); Red Blood Count 3.93 10^6/uL (3.85-5.65); Red Cell Distribution Width 12.4 % (12.1-15.1); White Blood Count 4.43 10^3/uL (3.29-11.43)
[2023-12-05 19:03] LABS: HCG, Serum Qual Negative (Negative)
[2023-12-05 19:06] LABS: Alanine Aminotransferase 16 U/L (0-33); Alkaline Phosphatase 77 U/L (35-105); Anion Gap 12.8 (5-19); Aspartate Amino Transferase 17 U/L (0-32); Blood Urea Nitrogen 9 mg/dL (6-20); Calcium 8.5 mg/dL (8.5-10.5); Carbon Dioxide 26 mmol/L (22-29); Chloride 104 mmol/L (98-107); Creatinine Clr Calc Pharmacy 103.2529; Globulin 3.3 g/dL (1.3-4.6); Glomerular Filtration Rate 72.6 mL/min (90-130); Glucose 87 mg/dL (65-115); Osmolality Calculated 286 mOsm/kg (285-295); Potassium 3.8 mmol/L (3.5-5.1); Sodium 139 mmol/L (136-145); Total Bilirubin 0.5 mg/dL (0.15-1.2); Total Protein 7.3 g/dL (6.6-8.7)
== END 2023-12-05 19:31 | disposition home or self-care (01) ==
PROVIDERS: Emergency Provider Physician Assistant; PCP Nurse Practitioner Family
DX: R55 Syncope and collapse (principal)
CPT/HCPCS: 36415; 80053; 80306; 81001; 84703; 85025; 93005; 99284

== ENCOUNTER → 2023-12-07 10:25 | Outpatient (BNVA) | payer MEDICAID, SELFPAY | PROVIDERS: PCP Nurse Practitioner Family; Visit Provider Nurse Practitioner Family | DX: R79.89 Other specified abnormal findings of blood chemistry (principal); R55 Syncope and collapse; R31.9 Hematuria, unspecified; Z13.6 Encounter for screening for cardiovascular disorders | CPT/HCPCS: 80061; 81003; 83036; 84439; 84443; 84481 ==

== ENCOUNTER 2024-07-10 10:04 | Outpatient (CLI) | payer MEDICAID, SELFPAY ==
--- NOTE | 2024-07-10 10:00 | MM_ITS ---
WS: [id number] DIAGNOSTIC BILATERAL DIGITAL BREAST TOMOSYNTHESIS MAMMOGRAPHY WITH CAD RIGHT breast ultrasound, limited HISTORY: N64.4 - Mastodynia COMPARISON: None available. TECHNIQUE: Bilateral craniocaudad, mediolateral oblique, and mediolateral views are submitted with to mosynthesis and SM. Spot compression RIGHT MLO and CC. Computer aided detection utilized. Breast composition: The breasts are heterogeneously dense, which may obscure small masses. No abnormality in the RIGHT upper outer quadrant in the area of pain. No masses or distortion. There are a few scattered calcifications in the medial RIGHT breast. LEFT breast is negative. RIGHT breast ultrasound, limited. Ultrasound is directed to the upper outer quadrant of the RIGHT breast as directed by the patient. Ve ry heterogeneous breast tissue but no mass or distortion. MM/MM diag BI tomosynthesis [id number] IMPRESSION: BI-RADS: 2 - Benign FOLLOW UP: See Report Follow-up recommended at age 41 if there are no intervening abnormalities.
--- NOTE | 2024-07-10 10:30 | US_ITS ---
WS: [id number] DIAGNOSTIC BILATERAL DIGITAL BREAST TOMOSYNTHESIS MAMMOGRAPHY WITH CAD RIGHT breast ultrasound, limited HISTORY: N64.4 - Mastodynia COMPARISON: None available. TECHNIQUE: Bilateral craniocaudad, mediolateral oblique, and mediolateral views are submitted with to mosynthesis and SM. Spot compression RIGHT MLO and CC. Computer aided detection utilized. Breast composition: The breasts are heterogeneously dense, which may obscure small masses. No abnormality in the RIGHT upper outer quadrant in the area of pain. No masses or distortion. There are a few scattered calcifications in the medial RIGHT breast. LEFT breast is negative. RIGHT breast ultrasound, limited. Ultrasound is directed to the upper outer quadrant of the RIGHT breast as directed by the patient. Ve ry heterogeneous breast tissue but no mass or distortion. US/US breast RT limited* [id number] IMPRESSION: BI-RADS: 2 - Benign FOLLOW UP: See Report Follow-up recommended at age 41 if there are no intervening abnormalities.
== END 2024-07-10 10:05 | disposition home or self-care (01) ==
LOC: RAD 10:04
PROVIDERS: PCP Nurse Practitioner Family; Visit Provider Nurse Practitioner Family
DX: N64.4 Mastodynia (principal); Z80.3 Family history of malignant neoplasm of breast; R92.333 Mammographic heterogeneous density, bilateral breasts; R92.1 Mammographic calcification found on diagnostic imaging of breast
CPT/HCPCS: 76642; 77062; G0279

== ENCOUNTER → 2024-07-18 10:47 | Outpatient (BNVA) | payer MEDICAID, SELFPAY | PROVIDERS: PCP Nurse Practitioner Family; Visit Provider Nurse Practitioner Family | DX: B34.9 Viral infection, unspecified (principal); R05.9 Cough, unspecified | CPT/HCPCS: 87426 ==

== ENCOUNTER → 2025-02-28 14:48 | Outpatient (BNVA) | payer MEDICAID, SELFPAY | PROVIDERS: PCP Nurse Practitioner Family; Visit Provider Nurse Practitioner Family | DX: Z13.6 Encounter for screening for cardiovascular disorders (principal); R79.89 Other specified abnormal findings of blood chemistry; E03.9 Hypothyroidism, unspecified; E55.9 Vitamin D deficiency, unspecified; Z79.899 Other long term (current) drug therapy | CPT/HCPCS: 73630; 80053; 80061; 81003; 82306; 83036; 84439; 84443; 85025; 86376; 87086 ==

== ENCOUNTER → 2025-06-07 08:49 | Outpatient (BNVA) | payer OTHER, MEDICAID, SELFPAY | PROVIDERS: PCP Nurse Practitioner Family; Visit Provider Nurse Practitioner Family | DX: M79.671 Pain in right foot (principal) | CPT/HCPCS: 73630 ==